=== PATIENT | male | born 1965 | race Caucasian/White ===

== ENCOUNTER 2018-09-30 07:45 | Emergency (ER) | payer OTHER ==
[2018-09-30 08:00] VITALS: BP 166/86; PULSE 88; TEMP 98.3; BMI 34.7
[2018-09-30] MEDS ORDERED: DEXAMETHASONE 4 MG TABLET (FP) PO STA (08:20)
[2018-09-30] MEDS ORDERED: DEXAMETHASONE 4 MG TABLET (FP) ONE (08:28)
--- NOTE | 2018-09-30 08:42 | PDOC ---
History of Present Illness - General Chief Complaint: Sore Throat Stated Complaint: SORE THROAT,BODY ACHE Time Seen by Provider: 09/30/18 08:11 History Source: Patient Exam Limitations: No Limitations - History of Present Illness Initial Comments: 09/30/18 08:42 c/o sore throat for 2 days with body aches fever last night. no vomiting. son and aughter with same symptoms. Timing/Duration: 24 hours Severity: moderate Associated Symptoms: reports: fever/chills, loss of appetite, malaise Past History - Past Medical History Allergies/Adverse Reactions: Allergies Allergy/AdvReac Type Severity Reaction Status Date / Time No Known Allergies Allergy Verified 09/30/18 07:51 Home Medications: Ambulatory Orders Penicillin V Potassium [Pen Vee K -] 250 mg PO QID #120 tablet 09/30/18 Cardiac Disorders: Yes (HEART MURMUR) COPD: No Seizures: Yes - Surgical History Appendectomy: Yes - Immunization History Immunization Up to Date: Yes - Suicide/Smoking/Psychosocial Hx Smoking History: Current every day smoker Have you smoked in the past 12 months: Yes Number of Cigarettes Smoked Daily: 20 Information on smoking cessation initiated: No 'Breaking Loose' booklet given: 03/08/16 Hx Alcohol Use: No Drug/Substance Use Hx: No Substance Use Type: None Review of Systems - Review of Systems Able to Perform ROS?: Yes Is the patient limited Panamanian proficient: No Constitutional: Yes: Fever HEENTM: Yes: Throat Pain, Difficulty Swallowing *Physical Exam - Vital Signs Last Vital Signs Temp Pulse Resp BP Pulse Ox 98.3 F 88 16 166/86 98 09/30/18 07:51 09/30/18 07:51 09/30/18 07:51 09/30/18 07:51 09/30/18 07:51 - Physical Exam General Appearance: Yes: Nourished, Appropriately Dressed HEENT: positive: EOMI, VERENICE, TMs Normal, Pharyngeal Erythema, Tonsillar Erythema Neck: positive: Supple, Lymphadenopathy (L). negative: Tender Respiratory/Chest: positive: Lungs Clear, Normal Breath Sounds. negative: Chest Tender Cardiovascular: positive: Regular Rhythm, Regular Rate Gastrointestinal/Abdominal: positive: Normal Bowel Sounds, Soft. negative: Tender Extremity: positive: Normal Capillary Refill, Normal Inspection, Normal Range of Motion Integumentary: positive: Normal Color, Dry, Warm Neurologic: positive: Fully Oriented, Alert, Normal Mood/Affect, Normal Response , Motor Strength 04/03 ED Treatment Course - Medications Given in the ED: ED Medications Discontinued Medications Generic Name Dose Route Start Last Admin Trade Name Rush PRN Reason Stop Dose Admin Dexamethasone 10 mg 09/30/18 08:20 09/30/18 08:30 Decadron - PO 09/30/18 08:21 10 mg NOW STA Administration Medical Decision Making - Medical Decision Making 09/30/18 08:43 cc: sore throat low grade fever, no vomiting, painful swallowing children with same symptoms will give decadron for swelling pt took tylenol at 6am today will treat for possible strep exam consistent with strep *DC/Admit/Observation/Transfer Diagnosis at time of Disposition: Strep pharyngitis - Discharge Dispostion Disposition: HOME Condition at time of disposition: Good - Prescriptions Prescriptions: Penicillin V Potassium [Pen Vee K -] 250 mg PO QID #120 tablet - Referrals Referrals: Veronica Corrales MD [Primary Care Provider] - - Patient Instructions Printed Discharge Instructions: DI for Pharyngitis/Tonsillopharyngitis -- Adult Additional Instructions: gargle with warm salt water 4-5 times a day take the antibiotics as directed take tylenol every 4-6hrs for pain pleanty of clear fluids, ice pops, jello, soup follow with your doctor if any symptoms worsen or persist - Post Discharge Activity
== END 2018-09-30 09:14 | disposition home or self-care (01) ==
LOC: JERFT 07:45 → JER 07:45 → JERFT 09:14
DX: J02.0 Streptococcal pharyngitis (principal); R01.1 Cardiac murmur, unspecified; Z86.69 Personal history of other diseases of the nervous system and sense organs; Z88.0 Allergy status to penicillin
CPT/HCPCS: 87070; 87430; 99281-25

== ENCOUNTER 2019-11-11 13:35 | Emergency (ER) | payer OTHER ==
[2019-11-11 13:44] VITALS: BP 131/71; PULSE 89; TEMP 98.5; BMI 32.5
--- NOTE | 2019-11-11 14:21 | PDOC ---
History of Present Illness - General Chief Complaint: Rash Stated Complaint: RASH Time Seen by Provider: 11/11/19 13:49 History Source: Patient Exam Limitations: No Limitations Past History - Travel Traveled outside of the country in the last 30 days: No Close contact w/someone who was outside of country & ill: No - Past Medical History Allergies/Adverse Reactions: Allergies Allergy/AdvReac Type Severity Reaction Status Date / Time No Known Allergies Allergy Verified 11/11/19 13:40 Home Medications: Ambulatory Orders Ibuprofen 600 mg PO Q6H #30 tablet 11/11/19 Valacyclovir HCl [Valtrex -] 1,000 mg PO TID #21 tablet 11/11/19 Cardiac Disorders: Yes (HEART MURMUR) COPD: No Seizures: Yes - Surgical History Appendectomy: Yes - Immunization History Immunization Up to Date: Yes - Psycho Social/Smoking Cessation Hx Smoking History: Never smoked Have you smoked in the past 12 months: Yes Number of Cigarettes Smoked Daily: 20 'Breaking Loose' booklet given: 03/08/16 Hx Alcohol Use: No Drug/Substance Use Hx: No Substance Use Type: None Review of Systems - Review of Systems Able to Perform ROS?: Yes Comments:: 11/11/19 14:16 CONSTITUTIONAL: Absent: fever, chills, diaphoresis, generalized weakness, malaise, loss of appetite HEENT: Absent: rhinorrhea, nasal congestion, throat pain, throat swelling, difficulty swallowing, mouth swelling, ear pain, eye pain, visual Changes MUSCULOSKELETAL: Absent: myalgia, arthralgia, joint swelling SKIN: Present: rash Absent: itching, pallor NEUROLOGIC: Absent: headache, focal weakness or paresthesias, dizziness, unsteady gait, seizure, mental status changes, bladder or bowel incontinence PSYCHIATRIC: Absent: anxiety, depression, suicidal or homicidal ideation, hallucinations. Is the patient limited Lithuanian proficient: No *Physical Exam - Vital Signs Last Vital Signs Temp Pulse Resp BP Pulse Ox 98.5 F 89 17 131/71 99 11/11/19 13:40 11/11/19 13:40 11/11/19 13:40 11/11/19 13:40 11/11/19 13:40 - Physical Exam 11/11/19 14:17 GENERAL: The patient is awake, alert, and fully oriented, in no acute distress. HEAD: Normal with no signs of trauma. EYES: Pupils equal, round and reactive to light, extraocular movements intact, sclera anicteric, conjunctiva clear. EXTREMITIES: Normal range of motion, no edema. NEUROLOGICAL: Normal speech, normal gait. PSYCH: Normal mood, normal affect. SKIN: Vesicular rash along the T4 dermatome. warm, Dry, normal turgor, no rashes or lesions noted. Medical Decision Making - Medical Decision Making 11/11/19 17:23 The patient is a 54-year-old male otherwise healthy who presents to the ER with 2 days of a rash to his back. He states that the the rash started feeling tingly yesterday and he noticed the bumps today he has been scratching. He states that it starts in his back and wraps around to his chest. He does have history of chickenpox as a child. A/P: Shingles On exam patient with a vesicular rash to his mid back to sternum along the T4 dermatome which does not cross the midline We will treat with Valtrex as this appears to be a shingles rash Patient to follow-up with his primary care doctor. Explained that the patient should avoid patients, immunocompromised people, infants to prevent spreading the rash. Discharge home I discussed the physical exam findings, ancillary test results and final diagnoses with the patient. I answered all of the patient's questions. The patient was satisfied with the care received and felt comfortable with the discharge plan and treatment plan. The Patient agrees to follow up with the primary care physician/specialist within 24-72 hours. Return precautions were given. Discharge - Discharge Information Problems reviewed: Yes Clinical Impression/Diagnosis: Shingles Qualifiers: Herpes zoster complications: without complications Qualified Code(s): B02.9 - Zoster without complications Condition: Stable Disposition: HOME - Admission No - Additional Discharge Information Prescriptions: Ibuprofen 600 mg PO Q6H #30 tablet Valacyclovir HCl [Valtrex -] 1,000 mg PO TID #21 tablet - Follow up/Referral Referrals: Mark Hilario MD [Staff Physician] - - Patient Discharge Instructions Patient Printed Discharge Instructions: DI for Shingles Additional Instructions: Your evaluated for your rash today. It appears to be shingles. Please take the Valtrex 3 times a day for 1 week as directed You may take Motrin 600 mg every 6 hours as needed for pain. Please avoid contact with people, immunocompromised people, the elderly and infants to avoid spreading the illness. Please follow-up with your primary care doctor this week. If you do not have one a referral is been provided for you Return to the ER for any new or worsening symptoms. - Post Discharge Activity Work/Back to School Note: Back to Work
== END 2019-11-11 14:26 | disposition home or self-care (01) ==
LOC: JERFT 13:35
DX: B02.9 Zoster without complications (principal); R56.9 Unspecified convulsions
CPT/HCPCS: 99281-25

== ENCOUNTER 2021-05-03 18:23 | Emergency (ER) | payer OTHER ==
[2021-05-03 18:46] VITALS: BP 121/77; PULSE 71; TEMP 97.8; BMI 34.0
[2021-05-03] MEDS ORDERED: KETOROLAC TROMETHAMINE 30 MG/1 ML VIAL IM ONE (19:21)
[2021-05-03] MEDS ORDERED: CYCLOBENZAPRINE HCL 10 MG TABLET (FP) PO ONE (19:21)
[2021-05-03] MEDS ORDERED: KETOROLAC TROMETHAMINE 30 MG/1 ML VIAL ONE (19:36)
[2021-05-03] MEDS ORDERED: CYCLOBENZAPRINE HCL 10 MG TABLET (FP) ONE (19:36)
== END 2021-05-03 20:12 | disposition home or self-care (01) ==
LOC: JERFT 18:23
PROC: 3E0233Z Introduction of Anti-inflammatory into Muscle, Percutaneous Approach (ICD-10-PCS; principal; 2021-05-03)
DX: M54.5 Low back pain (principal)
CPT/HCPCS: 99284-25